=== PATIENT | male | born 1975 | race Caucasian/White ===

== ENCOUNTER 2021-08-19 12:36 | Emergency (ER) | payer SELFPAY ==
[2021-08-19 14:18] LABS: ACETAMINOPHEN 0 ug/mL (10-30)
[2021-08-19] MEDS ORDERED: Ondansetron 4 MG Tab.DIS PO ONE (14:20)
== END 2021-08-19 15:25 | disposition other institution (70) ==
LOC: JD.ED 12:36
DX: F10.10 Alcohol abuse, uncomplicated (principal); Z72.0 Tobacco use; Y90.5 Blood alcohol level of 100-119 mg/100 ml
CPT/HCPCS: 36415; 80053; 80143; 80179; 80306; 80307; 84443; 85007; 85027; 93005; 99285; A9270; 93010

== ENCOUNTER 2022-01-15 16:56 | Emergency (ER) | payer OTHER, MEDICAID ==
[2022-01-15] MEDS ORDERED: Sodium Chloride 0.9% 10 ML Syringe FLUSH PRN (17:47)
[2022-01-15] MEDS ORDERED: Iopamidol 612 MG/ML 100 ML Bottle IVPUSH ONE (17:59)
[2022-01-15] MEDS ORDERED: Iopamidol 612 MG/ML 50 ML SDV IVPUSH ONE (17:59)
== END 2022-01-15 19:36 | disposition home or self-care (01) ==
LOC: JD.ED 16:56
DX: S16.1XXA Strain of muscle, fascia and tendon at neck level, initial encounter (principal); S20.211A Contusion of right front wall of thorax, initial encounter; S00.31XA Abrasion of nose, initial encounter; F17.210 Nicotine dependence, cigarettes, uncomplicated; Z86.16 Personal history of COVID-19; V49.10XA Passenger injured in collision with unspecified motor vehicles in nontraffic accident, initial encounter; Y92.410 Unspecified street and highway as the place of occurrence of the external cause
CPT/HCPCS: 36415; 70450; 71260; 72125; 74177; 80053; 83690; 85025; 99284; J3490; Q9967; 99283

== ENCOUNTER 2022-09-28 11:46 | Emergency (ER) | payer SELFPAY ==
[2022-09-28] MEDS ORDERED: Sodium Chloride 0.9% 10 ML Syringe FLUSH PRN (12:07)
[2022-09-28] MEDS ORDERED: Ondansetron 4 MG/2 ML SDV IVPUSH ONE (12:07)
[2022-09-28] MEDS ORDERED: Famotidine 20 MG/2 ML SDV IVPUSH ONE (12:09)
[2022-09-28] MEDS ORDERED: Sodium Chloride 0.9% 1,000 ML IV SCH (12:15)
== END 2022-09-28 15:11 | disposition home or self-care (01) ==
LOC: JD.ED 11:46
DX: E86.0 Dehydration (principal); I10 Essential (primary) hypertension; F17.210 Nicotine dependence, cigarettes, uncomplicated; Z86.16 Personal history of COVID-19
CPT/HCPCS: 36415; 70450; 71045; 80053; 80307; 83735; 84484; 85025; 93005; 96361; 96374; 96375; 99284; J2405; J3490; J7030; 93010

== ENCOUNTER 2022-12-09 20:50 | Emergency (ER) | payer SELFPAY | END 2022-12-09 21:00 | disposition left against medical advice (07) | LOC: JD.ED 20:50 | DX: Z53.21 Procedure and treatment not carried out due to patient leaving prior to being seen by health care provider (principal) ==

== ENCOUNTER 2022-12-29 19:52 | Emergency (ER) | payer SELFPAY ==
[2022-12-29 20:50] LABS: BASOPHILS ABSOLUTE AUTO 0.06 K/mm3 (0.01-0.08); BASOPHILS PERCENT AUTO 0.6 % (0.1-1.2); EOSINOPHILS ABSOLUTE AUTO 0.14 K/mm3 (0.04-0.54); EOSINOPHILS PERCENT AUTO 1.5 (0.8-7.0); HEMATOCRIT 45.4 % (40.1-51.0); HEMOGLOBIN 15.7 gm/dl (13.7-17.5); IMMATURE GRAN ABSOLUTE AUTO 0.02 K/mm3 (0.00-0.10); IMMATURE GRAN PERCENT AUTO 0.2 % (<=1.0); LYMPHOCYTES ABSOLUTE AUTO 3.42 K/mm3 (1.32-3.57); LYMPHOCYTES PERCENT AUTO 35.4 % (21.8-53.1); MEAN CORPUSCULAR HEMOGLOBIN 31.8 pg (25.7-32.2); MEAN CORPUSCULAR HGB CONC 34.6 g/dl (32.2-35.5); MEAN CORPUSCULAR VOLUME 91.9 fl (79.0-92.2); MEAN PLATELET VOLUME 9.5 fl (9.4-12.3); MONOCYTES ABSOLUTE AUTO 0.61 K/mm3 (0.30-0.82); MONOCYTES PERCENT AUTO 6.3 % (5.3-12.2); PLATELET COUNT,PLT 234 K/mm3 (163-337); RED BLOOD CELL COUNT 4.94 M/mm3 (4.63-6.08); WHITE BLOOD CELL COUNT,WBC 9.65 K/mm3 (4.23-9.07)
[2022-12-29 21:13] LABS: BARBITURATE SCREEN,URINE NEGATIVE (CUTOFF=200); BENZODIAZEPINES SCREEN,URINE NEGATIVE (CUTOFF=150); BUPRENORPHINE SCREEN,URINE NEGATIVE (CUTOFF=10); METHADONE SCREEN, URINE NEGATIVE (CUT0FF=200); METHAMPHETAMINES SCREEN, URINE NEGATIVE (CUTOFF=500); OXYCODONE SCREEN,URINE NEGATIVE (CUT0FF=100); PROPOXYPHENE SCREEN,URINE NEGATIVE (CUTOFF=300); THC SCREEN,URINE 20 NG/ML NEGATIVE (CUTOFF=50)
[2022-12-29 21:18] LABS: AMPHETAMINES SCREEN, URINE NEGATIVE (CUTOFF=500)
[2022-12-29 21:20] LABS: A/G RATIO 1.2 (1-2); ALBUMIN 3.8 g/dl (3.4-5.0); ANION GAP 16.2 (5-15); BILIRUBIN TOTAL 0.5 mg/dL (0.2-1.0); BUN/CREATININE RATIO 17.3 (14-18); CALCIUM 8.8 mg/dL (8.5-10.1); CREATININE 1.1 mg/dL (0.7-1.3); EST CRCL DRUG DOSING (CG) 95.84 mL/min; ETHANOL BLOOD MEDICAL 0.11 gm% (0.00); POTASSIUM,K 4.2 mEq/L (3.5-5.1); TSH 1.47 uIU/mL (0.358-3.74)
== END 2022-12-29 22:15 ==
LOC: JD.ED 19:52
DX: T42.4X2A Poisoning by benzodiazepines, intentional self-harm, initial encounter (principal); F10.90 Alcohol use, unspecified, uncomplicated; R45.6 Violent behavior; Y90.9 Presence of alcohol in blood, level not specified
CPT/HCPCS: 36415; 80053; 80143; 80179; 80306; 80307; 84443; 85025; 93005; 93010; 99285